=== PATIENT | female | born 1955 | race Caucasian/White ===

== ENCOUNTER 2019-02-06 20:44 | Emergency (ER) | payer OTHER ==
[2019-02-06] MEDS ORDERED: ONDANSETRON HCL/PF 4 MG/2 ML VIAL ONE (20:59)
[2019-02-06] MEDS ORDERED: HYDROMORPHONE 1 MG/1 ML DISP.SYRIN ONE ×3 (21:00→22:48)
[2019-02-06] MEDS ORDERED: HYDROMORPHONE 1 MG/1 ML DISP.SYRIN IV ONE ×2 (21:00→22:00)
[2019-02-06] MEDS ORDERED: ONDANSETRON HCL/PF 4 MG/2 ML VIAL IV ONE (21:00)
[2019-02-06] MEDS ORDERED: TDAP [DIPH/PERTUSSIS/TET] 0.5 ML VIAL IM ONE ×2 (21:30→21:37)
[2019-02-06] MEDS ORDERED: ACETAMINOPHEN 325 MG TABLET PO ONE (21:30)
[2019-02-06] MEDS ORDERED: KETOROLAC TROMETHAMINE INJ 30 MG/ML VIAL IV ONE (21:30)
[2019-02-06] MEDS ORDERED: KETOROLAC TROMETHAMINE 15 MG/ML VIAL ONE (21:37)
[2019-02-06] MEDS ORDERED: ACETAMINOPHEN 325 MG TABLET ONE (21:37)
[2019-02-06] MEDS ORDERED: HYDROMORPHONE INJ 0.5 MG/0.5 ML SYRINGE IV ONE (23:00)
[2019-02-06] MEDS ORDERED: LOSARTAN POTASSIUM 25 MG TABLET PO ONE (23:00)
[2019-02-06] MEDS ORDERED: DEXTROSE 50%-WATER 50 ML DISP.SYRIN IVP ONE (23:00)
[2019-02-06] MEDS ORDERED: LOSARTAN POTASSIUM 50 MG TABLET ONE (23:01)
[2019-02-06] MEDS ORDERED: DEXTROSE 50%-WATER 50 ML DISP.SYRIN ONE (23:03)
[2019-02-07] MEDS ORDERED: HYDROMORPHONE 1 MG/1 ML DISP.SYRIN ONE (01:40)
== END 2019-02-07 01:59 | disposition short-term general hospital (02) ==
DX: S42.211A Unspecified displaced fracture of surgical neck of right humerus, initial encounter for closed fracture (principal); S60.512A Abrasion of left hand, initial encounter; S00.211A Abrasion of right eyelid and periocular area, initial encounter; E11.649 Type 2 diabetes mellitus with hypoglycemia without coma; D72.829 Elevated white blood cell count, unspecified; Z98.890 Other specified postprocedural states; Z23 Encounter for immunization; V49.49XA Driver injured in collision with other motor vehicles in traffic accident, initial encounter; Y93.89 Activity, other specified; Y92.411 Interstate highway as the place of occurrence of the external cause; Y99.8 Other external cause status
CPT/HCPCS: 36415; 71045; 73030; 73060; 73130; 80048; 80076; 82962 ×3; 85025; 85730; 90471; 90715; 93005; 96374; 96375; 96376; 99285; J1170 ×3; J1885; J2405